=== PATIENT | male | born 1980 | race Hispanic/Latino ===

== ENCOUNTER 2017-05-25 12:11 | Emergency (ER) | payer SELFPAY | END 2017-05-25 17:24 | disposition home or self-care (01) | PROVIDERS: Emergency Provider Internal Medicine; Visit Provider Internal Medicine | DX: N28.89 Other specified disorders of kidney and ureter (principal); H60.392 Other infective otitis externa, left ear; H66.92 Otitis media, unspecified, left ear | CPT/HCPCS: 36415; 70480; 74177; 80053; 81001; 83605; 83690; 84145; 85025; 85610; 96361; 96374; 96375; 99058; 99284; J1885; J2270; Q9967 ==